=== PATIENT | female | born 1970 | race African-American/Black ===

== ENCOUNTER 2018-02-28 04:03 | Emergency (ER) | payer MEDICAID ==
[~2018-02-28] VITALS: Ht 162.6 cm; Wt 77.0 kg
[~2018-02-28 04:03] MED LIST: OXYC-23 PO; [UNRECOGNIZED DRUG - CODE] PO
[2018-02-28] MEDS ORDERED: IBUPROFEN 800MG TABLET PO ONE (06:45)
[2018-02-28] MEDS ORDERED: SULFAMETHOXAZOLE/TRIMETHOPRIM 800/160MG TABLET PO ONE (06:45)
[2018-02-28] MEDS ORDERED: DIPHENHYDRAMINE 25MG CAPSULE PO ONE ×2 (06:45→09:15)
[2018-02-28 09:51] VITALS: BP 133/85
== END 2018-02-28 10:07 | disposition home or self-care (01) ==
LOC: ER 04:03
DX: G43.909 Migraine, unspecified, not intractable, without status migrainosus (principal); F20.9 Schizophrenia, unspecified; E05.90 Thyrotoxicosis, unspecified without thyrotoxic crisis or storm; I10 Essential (primary) hypertension; K21.9 Gastro-esophageal reflux disease without esophagitis; F31.9 Bipolar disorder, unspecified; F17.200 Nicotine dependence, unspecified, uncomplicated; F12.10 Cannabis abuse, uncomplicated; Z88.6 Allergy status to analgesic agent; Z88.8 Allergy status to other drugs, medicaments and biological substances
CPT/HCPCS: 99284; Q0163

== ENCOUNTER 2019-02-15 11:40 | Emergency (ER) | payer BC, MEDICAID ==
[~2019-02-15] VITALS: Ht 170.2 cm; Wt 80.0 kg
[~2019-02-15 11:40] MED LIST changes: +BUPR75TA3 PO; +CLON0.2T PO; +FLUO20CA33 PO; +LEVO25TA7 PO; +RANI150C12 PO
[2019-02-15] MEDS ORDERED: SODIUM CHLORIDE 0.9% 1,000 ML IV ONE (11:52)
[2019-02-15 12:15] LABS: BASOPHILS % 0.6 % (0.0-2.0); HEMATOCRIT. 37.3 % (36.0-48.0); HEMOGLOBIN. 12.6 g/dL (12.0-16.0); LYMPHOCYTES % 49.7 % (20.0-50.0); MEAN CORPUSCULAR HEMOGLOBIN 31.2 pg (28.0-32.0); MEAN CORPUSCULAR VOLUME 92.7 fL (81.0-99.0); MEAN PLATELET VOLUME 7.4 fl (7.4-10.4); MONOCYTES % 10.4 % (2.0-8.0); NEUTROPHILS % 37.3 % (40.0-76.0); PLATELET 243 x1000/uL (130-400); RED BLOOD CELL COUNT 4.02 mill/uL (4.2-5.4); RED CELL DISTRIBUTION WIDTH 13.6 % (11.6-14.6)
[2019-02-15 12:19] LABS: CHLORIDE 114 mEq/L (98-107)
[2019-02-15 12:22] LABS: ETHANOL BLOOD < 10 mg/dL
[2019-02-15 16:10] VITALS: BP 125/49
== END 2019-02-15 16:10 | disposition home or self-care (01) ==
LOC: ER 11:40
DX: T40.2X1A Poisoning by other opioids, accidental (unintentional), initial encounter (principal); T42.4X1A Poisoning by benzodiazepines, accidental (unintentional), initial encounter; I10 Essential (primary) hypertension; K21.9 Gastro-esophageal reflux disease without esophagitis; F31.9 Bipolar disorder, unspecified; E05.90 Thyrotoxicosis, unspecified without thyrotoxic crisis or storm; G43.909 Migraine, unspecified, not intractable, without status migrainosus; F20.9 Schizophrenia, unspecified; F12.10 Cannabis abuse, uncomplicated; Z79.82 Long term (current) use of aspirin; Z88.6 Allergy status to analgesic agent; Z88.1 Allergy status to other antibiotic agents; Z88.5 Allergy status to narcotic agent; Z79.899 Other long term (current) drug therapy; Y92.89 Other specified places as the place of occurrence of the external cause
CPT/HCPCS: 36415; 80053; 80320; 85025; 93005; 96360; 96361; 99284; J7030; G0480